=== PATIENT | male | born 1960 | race Caucasian/White ===

== ENCOUNTER 2017-12-05 09:55 | Emergency (ER) | payer OTHER ==
[~2017-12-05] VITALS: Ht 157.5 cm; Wt 79.4 kg
[~2017-12-05 09:55] MED LIST: Aspirin EC81 MG PO; CLON.5 PO; DESONIDE; DOC250 PO; GEMF600 PO; IBUP400 PO; LORA10 PO; LORA1SY PO; Milk Of Ma400 MG/5 M PO; NYST100P TOP; NYSTRITC TOP; Omeprazole20 M1; Omeprazole20 M1 PO; Prozac20 MG
[2017-12-05 11:04] LABS: Source, Urine Clean Catch
[2017-12-05 11:06] LABS: BASOPHILS ABSOLUTE AUTO 0.08 K/mm3 (0.00-0.23); BASOPHILS PERCENT AUTO 2 % (0-2); EOSINOPHILS ABSOLUTE AUTO 0.03 K/mm3 (0.00-0.68); EOSINOPHILS PERCENT AUTO 1 % (0-6); Hematocrit 43.2 % (37.0-53.0); Hemoglobin 14.4 g/dL (13.5-17.5); IMMATURE GRAN ABSOLUTE AUTO 0.01 K/mm3 (0.00-0.10); IMMATURE GRAN PERCENT AUTO 0 % (0-1); LYMPHOCYTES ABSOLUTE AUTO 1.78 K/mm3 (0.84-5.20); LYMPHOCYTES PERCENT AUTO 53 % (21-46); MONOCYTES ABSOLUTE AUTO 0.32 K/mm3 (0.16-1.47); MONOCYTES PERCENT AUTO 9 % (4-13); Mean Corpuscular HGB 31.1 pg (26.0-34.0); Mean Corpuscular HGB Conc 33.3 g/dL (31.5-36.5); Mean Corpuscular Volume 93 fL (80-100); Mean Platelet Volume 11.4 fL (9.1-12.4); NEUTROPHILS ABSOLUTE AUTO 1.17 K/mm3 (1.96-9.15); NEUTROPHILS PERCENT AUTO 35 % (41-73); Platelet Count 171 K/mm3 (150-400); RDW Coefficient Variation 13.3 % (11.7-14.2); RDW Standard Deviation 45.5 fL (35.1-46.3); Red Blood Cell Count 4.63 M/mm3 (4.30-5.90); White Blood Cell Count 3.39 K/mm3 (4.00-11.30)
[2017-12-05 11:11] LABS: Bilirubin, Urine Neg (Neg); Blood, Urine Neg (Neg); Glucose Qualitative, Urine Neg (Neg); Ketones, Urine Neg (Neg); Leukocyte Esterase, Urine Neg (Neg); Nitrite, Urine Neg (Neg); Protein, Urine Neg (Neg); Urobilinogen, Urine NORM (Normal); pH, Urine 6.5 (5.0-8.0)
[2017-12-05 11:15] LABS: Calcium, Ionized (POC) 1.19 mmol/L (1.10-1.46); Chloride (POC) 101 mmol/L (98-108); Creatinine (POC) 0.9 mg/dL (0.8-1.3); Glucose (ISTAT POC) 85 mg/dL (70-99); Hemoglobin (POC) 13.9 g/dL (13.5-17.5); Potassium (POC) 4.2 mmol/L (3.5-5.5); Sodium (POC) 139 mmol/L (135-148); Total CO2 (POC) 25 mmol/L (21-32)
[2017-12-05 11:23] LABS: Appearance, Urine Clear (Clear); Color, Urine Yellow (P-Yellow)
[2017-12-05 11:31] LABS: Alanine Aminotransfer (ALT/SGP 29 U/L (12-78); Albumin, Blood 3.6 g/dL (3.4-5.0); Albumin/Globulin Ratio 0.9 (0.8-1.8); Alk Phos 107 U/L (50-136); Anion Gap 6 mmol/L (6-16); Aspartate Aminotrans (AST/SGOT 41 U/L (12-37); Bilirubin, Total 0.3 mg/dL (0.1-1.0); Blood Urea Nitrogen 14 mg/dL (8-24); Bun/Creatinine Ratio 14.8 (12.0-20.0); CO2, Blood 27 mmol/L (21-32); Calcium, Blood 8.6 mg/dL (8.5-10.1); Chloride, Blood 105 mmol/L (98-108); Creatinine, Blood 0.95 mg/dL (0.60-1.20); Dilantin (Phenytoin), Total 0.5 ug/mL (10.0-20.0); Globulin, Blood 3.9 g/dL (2.2-4.0); Glomerular Filtration Rate >60 (60-); Glucose, Blood 83 mg/dL (70-99); Potassium, Blood 4.4 mmol/L (3.5-5.5); Sodium, Blood 138 mmol/L (136-145); Total Protein, Blood 7.5 g/dL (6.4-8.2); Valproic Acid <3.0 ug/mL (50.0-100.0)
== END 2017-12-05 11:19 | disposition home or self-care (01) ==
LOC: ER 09:55
PROVIDERS: Emergency Medicine
DX: R56.9 Unspecified convulsions (principal); Z79.899 Other long term (current) drug therapy; Z79.82 Long term (current) use of aspirin
CPT/HCPCS: 36415; 80047; 80053; 80164; 80185; 81003; 85014; 85025; 99283

== ENCOUNTER 2018-07-06 06:06 | Day surgery (SDC) | payer OTHER ==
[~2018-07-06] VITALS: Ht 170.2 cm; Wt 73.1 kg
[2018-07-06] MEDS ORDERED: TAMS.4ER PO (06:38)
[2018-07-06] MEDS ORDERED: MIRALAX17 GM (06:39)
[2018-07-06] MEDS ORDERED: QUET25 PO (06:39)
[2018-07-06] MEDS ORDERED: PANT20 (06:40)
--- NOTE | 2018-07-06 08:43 | NUR ---
07/06/18 0843 Andrea Fitzpatrick LATE [id number] PATIENT STATES HE WANTS TO GO HOME NOW. WANTS IV OUT NOW STATES "IT HURTS". IV D/CD PER PATIENTS REQUEST. VSS
== END 2018-07-06 08:40 | disposition home or self-care (01) ==
LOC: ORSCSDS 06:06
PROVIDERS: Otolaryngology
PROC: 099670Z Drainage of Left Middle Ear with Drainage Device, Via Natural or Artificial Opening (ICD-10-PCS; principal; 2018-07-06 07:30)
PROC: 099570Z Drainage of Right Middle Ear with Drainage Device, Via Natural or Artificial Opening (ICD-10-PCS; principal; 2018-07-06 07:30)
DX: H90.0 Conductive hearing loss, bilateral (principal); H74.01 Tympanosclerosis, right ear; Q90.9 Down syndrome, unspecified; R73.9 Hyperglycemia, unspecified; E78.5 Hyperlipidemia, unspecified; Z79.899 Other long term (current) drug therapy; Z79.82 Long term (current) use of aspirin
CPT/HCPCS: J1100; J2250; J2370; J2405; J3010; J7120

== ENCOUNTER 2018-11-28 12:02 | Emergency (ER) | payer OTHER ==
[~2018-11-28] VITALS: Ht 152.4 cm; Wt 59.0 kg
[~2018-11-28 12:02] MED LIST changes: -CLON.5 PO; +GAVILAX17 GM PO; +Klonopin PO; +PANT40 PO; +QUET25 PO; +TAMS.4ER PO
[2018-11-28 13:22] LABS: BASOPHILS ABSOLUTE AUTO 0.05 K/mm3 (0.00-0.23); BASOPHILS PERCENT AUTO 2 % (0-2); EOSINOPHILS ABSOLUTE AUTO 0.01 K/mm3 (0.00-0.68); EOSINOPHILS PERCENT AUTO 0 % (0-6); Hematocrit 42.2 % (37.0-53.0); Hemoglobin 14.1 g/dL (13.5-17.5); IMMATURE GRAN ABSOLUTE AUTO 0.02 K/mm3 (0.00-0.10); IMMATURE GRAN PERCENT AUTO 1 % (0-1); LYMPHOCYTES ABSOLUTE AUTO 1.74 K/mm3 (0.84-5.20); LYMPHOCYTES PERCENT AUTO 56 % (21-46); MONOCYTES ABSOLUTE AUTO 0.31 K/mm3 (0.16-1.47); MONOCYTES PERCENT AUTO 10 % (4-13); Mean Corpuscular HGB 31.9 pg (26.0-34.0); Mean Corpuscular HGB Conc 33.4 g/dL (31.5-36.5); Mean Corpuscular Volume 96 fL (80-100); Mean Platelet Volume 11.5 fL (9.1-12.4); NEUTROPHILS ABSOLUTE AUTO 0.99 K/mm3 (1.96-9.15); NEUTROPHILS PERCENT AUTO 32 % (41-73); Platelet Count 138 K/mm3 (150-400); RDW Coefficient Variation 13.4 % (11.7-14.2); RDW Standard Deviation 47.4 fL (35.1-46.3); Red Blood Cell Count 4.42 M/mm3 (4.30-5.90); White Blood Cell Count 3.12 K/mm3 (4.00-11.30)
[2018-11-28 13:40] LABS: Alanine Aminotransfer (ALT/SGP 56 U/L (12-78); Albumin, Blood 3.3 g/dL (3.4-5.0); Alk Phos 78 U/L (50-136); Anion Gap 10 mmol/L (6-16); Aspartate Aminotrans (AST/SGOT 41 U/L (12-37); Bilirubin, Total 0.4 mg/dL (0.1-1.0); Blood Urea Nitrogen 13 mg/dL (8-24); Bun/Creatinine Ratio 13.3 (12.0-20.0); CO2, Blood 24 mmol/L (21-32); Calcium, Blood 8.2 mg/dL (8.5-10.1); Chloride, Blood 108 mmol/L (98-108); Creatinine, Blood 0.98 mg/dL (0.60-1.20); Globulin, Blood 3.2 g/dL (2.2-4.0); Glomerular Filtration Rate >60 (60-); Glucose, Blood 100 mg/dL (70-99); Potassium, Blood 4.3 mmol/L (3.5-5.5); Sodium, Blood 142 mmol/L (136-145); Total Protein, Blood 6.5 g/dL (6.4-8.2)
== END 2018-11-28 14:38 | disposition home or self-care (01) ==
LOC: ER 12:02
PROVIDERS: Emergency Medicine
DX: R56.9 Unspecified convulsions (principal); S00.12XA Contusion of left eyelid and periocular area, initial encounter; Q90.9 Down syndrome, unspecified; F03.90 Unspecified dementia, unspecified severity, without behavioral disturbance, psychotic disturbance, mood disturbance, and anxiety; Z79.899 Other long term (current) drug therapy
CPT/HCPCS: 36415; 80053; 85025; 96374; 99284-25; J2060

== ENCOUNTER 2019-06-24 09:49 | Emergency (ER) | payer OTHER ==
[~2019-06-24] VITALS: Ht 172.7 cm; Wt 68.0 kg
== END 2019-06-24 13:03 | disposition home or self-care (01) ==
LOC: ER 09:49
DX: R56.9 Unspecified convulsions (principal); Q90.9 Down syndrome, unspecified; F03.90 Unspecified dementia, unspecified severity, without behavioral disturbance, psychotic disturbance, mood disturbance, and anxiety; Z79.899 Other long term (current) drug therapy
CPT/HCPCS: 71046; 93005; 93010; 99284-25

== ENCOUNTER → 2019-07-25 | Outpatient (CLI) | payer OTHER ==
[2019-07-26 14:23] LABS: Stool Occult Bld Immuno 1 Negative (NEGATIVE)
== END | disposition home or self-care (01) ==
LOC: LAB 19:34 → LAB SHORT 19:34
PROVIDERS: Family Medicine
DX: Z12.11 Encounter for screening for malignant neoplasm of colon (principal)
CPT/HCPCS: G0328

== ENCOUNTER → 2019-12-25 | Outpatient (CLI) | payer OTHER ==
[~2019-12-25] MED LIST changes: +Ativan1 MG SL; +CLON.5 PO; +DIVA500EC PO; +HYDR1TAB94 PO; +LEVSOD25 PO; +Loratadine10 MG PO; +Prozac20 MG PO
[2019-12-25 15:45] LABS: Source, Urine Clean Catch
[2019-12-25 18:37] LABS: Bilirubin, Urine Neg (Neg); Blood, Urine Neg (Neg); Glucose Qualitative, Urine Neg (Neg); Ketones, Urine Neg (Neg); Leukocyte Esterase, Urine Neg (Neg); Nitrite, Urine Neg (Neg); Protein, Urine Neg (Neg); Urobilinogen, Urine NORM (Normal); pH, Urine 6.5 (5.0-8.0)
[2019-12-25 19:01] LABS: Appearance, Urine Clear (Clear); Color, Urine Yellow (P-Yellow)
== END | disposition home or self-care (01) ==
LOC: LAB SHORT 15:44 → LAB 15:44
PROVIDERS: Family Medicine
DX: R53.83 Other fatigue (principal); R53.81 Other malaise; R60.0 Localized edema
CPT/HCPCS: 81003

== ENCOUNTER 2020-03-04 00:34 | Day surgery (SDC) | payer OTHER ==
[2020-03-05] MEDS ORDERED: DULCOLAX400 MG/5 M PO ×2 (11:19→11:23)
[2020-03-05] MEDS ORDERED: OMEP20ER PO (11:19)
[2020-03-05] MEDS ORDERED: TUMS500 MG PO (11:20)
[2020-03-05] MEDS ORDERED: IBUP200 PO (11:20)
[2020-03-05] MEDS ORDERED: LOPE2C PO (11:20)
[2020-03-05] MEDS ORDERED: ACET325 PO (11:21)
[2020-03-05] MEDS ORDERED: CLON.5 PO (11:22)
[2020-03-05] MEDS ORDERED: ROBITUSSIN PO (11:22)
[2020-03-05] MEDS ORDERED: METAMUCIL POWD575 GM PO (11:24)
== END 2020-03-04 22:39 | disposition home or self-care (01) ==
LOC: WOUND 00:34
DX: I96 Gangrene, not elsewhere classified (principal); L89.310 Pressure ulcer of right buttock, unstageable; L40.9 Psoriasis, unspecified; L82.1 Other seborrheic keratosis; R56.9 Unspecified convulsions; Q90.9 Down syndrome, unspecified; F03.90 Unspecified dementia, unspecified severity, without behavioral disturbance, psychotic disturbance, mood disturbance, and anxiety; Z20.828 Contact with and (suspected) exposure to other viral communicable diseases; Z79.899 Other long term (current) drug therapy
CPT/HCPCS: G0463; U0003

== ENCOUNTER 2020-03-06 07:03 | Day surgery (SDC) | payer OTHER ==
[~2020-03-06] VITALS: Ht 172.7 cm; Wt 76.2 kg
[~2020-03-06 07:03] MED LIST changes: +ACET325 PO; +DULCOLAX400 MG/5 M PO; +IBUP200 PO; +LOPE2C PO; +METAMUCIL POWD575 GM PO; +OMEP20ER PO; +ROBITUSSIN PO; +TUMS500 MG PO
--- NOTE | 2020-03-06 08:09 | NUR ---
PATIENT ARRIVED FOR HIS PROCEDURE WITH HIS CARE-GIVERS, THE PATIENT IS MENTALLY SLOW AND HAS HIS SISTER POA, MUNIR SANDOVAL WILL CALL THE PATIENT'S SISTER WHEN THE ANESTHIST ARRIVES. History, Chart, Medications and Allergies reviewed before start of procedure.Lungs clear T/O to Auscultation. Patient confirms NPO status and agrees with scheduled surgery. Patient States Post-Procedure ride home has been arranged.
[2020-03-06 08:50] LABS: Anion Gap 5 mmol/L (6-16); Blood Urea Nitrogen 13 mg/dL (8-24); Bun/Creatinine Ratio 17.7 (12.0-20.0); CO2, Blood 28 mmol/L (21-32); Calcium, Blood 7.6 mg/dL (8.5-10.1); Chloride, Blood 98 mmol/L (98-108); Creatinine, Blood 0.74 mg/dL (0.60-1.20); Glomerular Filtration Rate >60 (60-); Glucose, Blood 70 mg/dL (70-99); Potassium, Blood 4.3 mmol/L (3.5-5.5); Sodium, Blood 131 mmol/L (136-145)
--- NOTE | 2020-03-06 10:29 | NUR ---
THE PATIENT WAS RECEIVED INTO D/S AND HIS CARE-GIVERS WERE IN THE ROOM. DISCHARGE INSTRUCTIONS WERE GIVEN TO THE PATIENTS CARE-GIVERS. / Discharge instructions reviewed with patient. Patient verbalizes understanding. Copy given to patient to take home. Patient States Post-Procedure ride home has been arranged. Discharged via wheelchair to private car for ride home.
[2020-03-06 10:49] LABS: Free Thyroxine 1.2 ng/dL (0.70-1.60); Thyroid Stimulating Hormone 3.33 uIU/mL (0.360-4.800); Triiodothyronine, Free 1.96 pg/mL (2.18-3.98)
== END 2020-03-06 11:05 | disposition home or self-care (01) ==
LOC: ORSCMMR 07:03 → ORD 08:30 → ORSCMMR 08:30
PROVIDERS: Family Medicine; Surgery
PROC: 0H98XZZ Drainage of Buttock Skin, External Approach (ICD-10-PCS; principal; 2020-03-06 08:30)
DX: L02.31 Cutaneous abscess of buttock (principal); A49.02 Methicillin resistant Staphylococcus aureus infection, unspecified site; K21.9 Gastro-esophageal reflux disease without esophagitis; G30.9 Alzheimer's disease, unspecified; F02.80 Dementia in other diseases classified elsewhere, unspecified severity, without behavioral disturbance, psychotic disturbance, mood disturbance, and anxiety; Z79.899 Other long term (current) drug therapy
CPT/HCPCS: 80048; 84439; 84443; 84481; 87071; 87075; 87076; 87077; 87147; 87185; 87186; 87205; J0690; J1100; J1885; J2405; J2704; J3010; J7120

== ENCOUNTER 2020-03-11 09:41 | Day surgery (SDC) | payer OTHER | END 2020-03-11 12:00 | disposition home or self-care (01) | LOC: WOUND 09:41 | DX: L02.31 Cutaneous abscess of buttock (principal); I96 Gangrene, not elsewhere classified; Q90.9 Down syndrome, unspecified; F03.90 Unspecified dementia, unspecified severity, without behavioral disturbance, psychotic disturbance, mood disturbance, and anxiety; Z79.899 Other long term (current) drug therapy | CPT/HCPCS: G0463 ==

== ENCOUNTER 2020-03-18 00:50 | Day surgery (SDC) | payer OTHER | END 2020-03-18 23:44 | disposition home or self-care (01) | LOC: WOUND 00:50 | DX: L02.31 Cutaneous abscess of buttock (principal); I96 Gangrene, not elsewhere classified; F02.81 Dementia in other diseases classified elsewhere, unspecified severity, with behavioral disturbance; Q90.9 Down syndrome, unspecified; Z79.899 Other long term (current) drug therapy ==

== ENCOUNTER → 2020-03-19 | Outpatient (CLI) | payer OTHER | END | disposition home or self-care (01) | LOC: LAB 16:42 → LAB SHORT 16:42 | DX: L08.0 Pyoderma (principal) | CPT/HCPCS: 87070; 87205 ==

== ENCOUNTER 2020-03-25 00:31 | Day surgery (SDC) | payer OTHER | END 2020-03-25 23:15 | disposition home or self-care (01) | LOC: WOUND 00:31 | DX: L02.31 Cutaneous abscess of buttock (principal); Q90.9 Down syndrome, unspecified; F02.81 Dementia in other diseases classified elsewhere, unspecified severity, with behavioral disturbance | CPT/HCPCS: G0463 ==

== ENCOUNTER 2020-04-01 01:11 | Day surgery (SDC) | payer OTHER | END 2020-04-01 23:07 | disposition home or self-care (01) | LOC: WOUND 01:11 | DX: L02.31 Cutaneous abscess of buttock (principal); I96 Gangrene, not elsewhere classified; Q90.9 Down syndrome, unspecified; F02.81 Dementia in other diseases classified elsewhere, unspecified severity, with behavioral disturbance; Z79.899 Other long term (current) drug therapy | CPT/HCPCS: G0463 ==

== ENCOUNTER 2020-04-15 01:25 | Day surgery (SDC) | payer OTHER | END 2020-04-15 22:44 | disposition home or self-care (01) | LOC: WOUND 01:25 | DX: L02.31 Cutaneous abscess of buttock (principal); Q90.9 Down syndrome, unspecified; F02.81 Dementia in other diseases classified elsewhere, unspecified severity, with behavioral disturbance; Z79.899 Other long term (current) drug therapy | CPT/HCPCS: G0463 ==

== ENCOUNTER 2020-04-26 01:08 | Day surgery (SDC) | payer OTHER | END 2020-04-26 23:13 | disposition home or self-care (01) | LOC: WOUND 01:08 | DX: L02.31 Cutaneous abscess of buttock (principal); Q90.9 Down syndrome, unspecified; F02.81 Dementia in other diseases classified elsewhere, unspecified severity, with behavioral disturbance | CPT/HCPCS: G0463 ==

== ENCOUNTER 2020-05-06 00:22 | Day surgery (SDC) | payer OTHER | END 2020-05-06 23:42 | disposition home or self-care (01) | LOC: WOUND 00:22 | DX: L02.31 Cutaneous abscess of buttock (principal); Q90.9 Down syndrome, unspecified; F02.81 Dementia in other diseases classified elsewhere, unspecified severity, with behavioral disturbance | CPT/HCPCS: G0463 ==

== ENCOUNTER 2020-05-14 05:13 | Emergency (ER) | payer OTHER ==
[~2020-05-14] VITALS: Ht 165.1 cm; Wt 81.7 kg
[2020-05-14 05:45] LABS: Calcium, Ionized (POC) 1.15 mmol/L (1.10-1.46); Chloride (POC) 102 mmol/L (98-108); Creatinine (POC) 0.8 mg/dL (0.8-1.3); Glucose (ISTAT POC) 69 mg/dL (70-99); Hemoglobin (POC) 13.9 g/dL (13.5-17.5); Potassium (POC) 4.1 mmol/L (3.5-5.5); Sodium (POC) 138 mmol/L (135-148); Total CO2 (POC) 27 mmol/L (21-32)
== END 2020-05-14 06:50 | disposition home or self-care (01) ==
LOC: ER 05:13
PROVIDERS: Emergency Medicine
DX: R56.9 Unspecified convulsions (principal); Z79.899 Other long term (current) drug therapy
CPT/HCPCS: 80047; 85014; 99284

== ENCOUNTER 2020-05-20 00:43 | Day surgery (SDC) | payer OTHER | END 2020-05-20 22:50 | disposition home or self-care (01) | LOC: WOUND 00:43 | DX: L02.31 Cutaneous abscess of buttock (principal); L98.412 Non-pressure chronic ulcer of buttock with fat layer exposed; Q90.9 Down syndrome, unspecified; F02.81 Dementia in other diseases classified elsewhere, unspecified severity, with behavioral disturbance | CPT/HCPCS: G0463 ==

== ENCOUNTER → 2020-05-29 | Outpatient (CLI) | payer OTHER ==
[~2020-05-29] MED LIST changes: +BENADRYL25 MG PO; +Citroma296 ML PO; +Clobetasol Prop50 ML TOP; +Clonazepam0.25 MG SL; +DEPAKOTE ER500 M1 PO; -DIVA500EC PO; -GAVILAX17 GM PO; +HYDROCODONE-AC1 EA10 PO; -IBUP200 PO; -Klonopin PO; +MIRALAX17 GM PO; +MONT10T PO; +Monodox100 MG PO; +NYSTOP15 GM TOP; -NYSTRITC TOP; -OMEP20ER PO; +PROBIOTIC1 EA13 PO; -Prozac20 MG; -QUET25 PO; +SYNTHROID25 MC3 PO; +Seroquel Xr50 MG PO; +TRIPLE ABX TOP; +calmoseptine oint TOP
== END | disposition home or self-care (01) ==
LOC: LAB HH 12:26 → LAB SHORT 12:26
DX: L02.31 Cutaneous abscess of buttock (principal); B95.62 Methicillin resistant Staphylococcus aureus infection as the cause of diseases classified elsewhere
CPT/HCPCS: 87070; 87081; 87147; 87205

== ENCOUNTER 2020-06-13 00:28 | Day surgery (SDC) | payer OTHER ==
[~2020-06-13 00:28] MED LIST changes: -ACET325 PO; -BENADRYL25 MG PO; -Citroma296 ML PO; -Clobetasol Prop50 ML TOP; -Clonazepam0.25 MG SL; -DEPAKOTE ER500 M1 PO; -DULCOLAX400 MG/5 M PO; -HYDROCODONE-AC1 EA10 PO; -LOPE2C PO; -Loratadine10 MG PO; -METAMUCIL POWD575 GM PO; -MIRALAX17 GM PO; -MONT10T PO; -Monodox100 MG PO; -NYSTOP15 GM TOP; -PANT40 PO; -PROBIOTIC1 EA13 PO; -ROBITUSSIN PO; -SYNTHROID25 MC3 PO; -Seroquel Xr50 MG PO; -TAMS.4ER PO; -TRIPLE ABX TOP; -TUMS500 MG PO; -calmoseptine oint TOP
== END 2020-06-13 23:30 | disposition home or self-care (01) ==
LOC: WOUND 00:28
DX: L02.31 Cutaneous abscess of buttock (principal); Q90.9 Down syndrome, unspecified; F03.91 Unspecified dementia, unspecified severity, with behavioral disturbance
CPT/HCPCS: A9270; G0463

== ENCOUNTER 2020-06-16 19:05 | Inpatient (IN) | payer OTHER ==
[~2020-06-16] VITALS: Ht 165.1 cm; Wt 88.7 kg
[2020-06-16 19:37] LABS: BASOPHILS ABSOLUTE AUTO 0.09 K/mm3 (0.00-0.23); BASOPHILS PERCENT AUTO 1 % (0-2); EOSINOPHILS PERCENT AUTO 0 % (0-6); Hematocrit 36.9 % (37.0-53.0); Hemoglobin 12.1 g/dL (13.5-17.5); IMMATURE GRAN ABSOLUTE AUTO 0.23 K/mm3 (0.00-0.10); IMMATURE GRAN PERCENT AUTO 1 % (0-1); LYMPHOCYTES ABSOLUTE AUTO 1.85 K/mm3 (0.84-5.20); LYMPHOCYTES PERCENT AUTO 10 % (21-46); MONOCYTES ABSOLUTE AUTO 1.64 K/mm3 (0.16-1.47); MONOCYTES PERCENT AUTO 9 % (4-13); Mean Corpuscular HGB 33.5 pg (26.0-34.0); Mean Corpuscular HGB Conc 32.8 g/dL (31.5-36.5); Mean Corpuscular Volume 102 fL (80-100); Mean Platelet Volume 11.7 fL (9.1-12.4); NEUTROPHILS ABSOLUTE AUTO 14.74 K/mm3 (1.96-9.15); NEUTROPHILS PERCENT AUTO 80 % (41-73); Platelet Count 116 K/mm3 (150-400); RDW Standard Deviation 60.9 fL (35.1-46.3); Red Blood Cell Count 3.61 M/mm3 (4.30-5.90); White Blood Cell Count 18.55 K/mm3 (4.00-11.30)
[2020-06-16] MEDS ORDERED: DEPAKOTE ER500 M1 PO (19:43)
[2020-06-16] MEDS ORDERED: Prozac20 MG PO (19:44)
[2020-06-16] MEDS ORDERED: Monodox100 MG PO (19:44)
[2020-06-16] MEDS ORDERED: SYNTHROID25 MC3 PO (19:45)
[2020-06-16] MEDS ORDERED: Loratadine10 MG PO (19:46)
[2020-06-16] MEDS ORDERED: Seroquel Xr50 MG PO (19:47)
[2020-06-16] MEDS ORDERED: MONT10T PO (19:47)
[2020-06-16] MEDS ORDERED: TAMS.4ER PO (19:48)
[2020-06-16] MEDS ORDERED: PANT40 PO (19:48)
[2020-06-16] MEDS ORDERED: Clonazepam0.25 MG SL (19:50)
[2020-06-16 20:05] LABS: Alanine Aminotransfer (ALT/SGP 35 U/L (12-78); Albumin, Blood 1.7 g/dL (3.4-5.0); Albumin/Globulin Ratio 0.5 (0.8-1.8); Alk Phos 101 U/L (50-136); Anion Gap 8 mmol/L (6-16); Aspartate Aminotrans (AST/SGOT 50 U/L (12-37); Bilirubin, Total 0.5 mg/dL (0.1-1.0); Blood Urea Nitrogen 30 mg/dL (8-24); Bun/Creatinine Ratio 27.5 (12.0-20.0); CO2, Blood 25 mmol/L (21-32); Calcium, Blood 8.1 mg/dL (8.5-10.1); Chloride, Blood 105 mmol/L (98-108); Creatinine, Blood 1.09 mg/dL (0.60-1.20); Globulin, Blood 3.7 g/dL (2.2-4.0); Glomerular Filtration Rate >60 (60-); Glucose, Blood 71 mg/dL (70-99); Potassium, Blood 4.2 mmol/L (3.5-5.5); Sodium, Blood 138 mmol/L (136-145); Total Protein, Blood 5.4 g/dL (6.4-8.2)
[2020-06-16] MEDS ORDERED: TUMS500 MG PO (20:26)
[2020-06-16] MEDS ORDERED: MIRALAX17 GM PO (20:35)
[2020-06-16] MEDS ORDERED: ACET325 PO (20:35)
[2020-06-16] MEDS ORDERED: DULCOLAX400 MG/5 M PO (20:36)
[2020-06-16] MEDS ORDERED: LOPE2C PO (20:38)
[2020-06-16] MEDS ORDERED: IBUP400 PO (20:39)
[2020-06-16] MEDS ORDERED: METAMUCIL POWD575 GM PO (20:40)
[2020-06-16] MEDS ORDERED: HYDROCODONE-AC1 EA10 PO (20:41)
[2020-06-16] MEDS ORDERED: PROBIOTIC1 EA13 PO (20:42)
[2020-06-16] MEDS ORDERED: BENADRYL25 MG PO (20:44)
[2020-06-16] MEDS ORDERED: CLON.5 PO (20:44)
[2020-06-16] MEDS ORDERED: Clobetasol Prop50 ML TOP (20:46)
[2020-06-16] MEDS ORDERED: calmoseptine oint TOP (20:47)
[2020-06-16] MEDS ORDERED: NYSTOP15 GM TOP (20:48)
[2020-06-16 20:50] LABS: Source, Urine Clean Catch
[2020-06-16] MEDS ORDERED: Citroma296 ML PO (20:50)
[2020-06-16] MEDS ORDERED: ROBITUSSIN PO (20:52)
[2020-06-16] MEDS ORDERED: TRIPLE ABX TOP (20:53)
[2020-06-16 20:54] LABS: Blood, Urine Neg (Neg); Glucose Qualitative, Urine Neg (Neg); Ketones, Urine 2+ (Neg); Leukocyte Esterase, Urine 1+ (Neg); Nitrite, Urine Neg (Neg); Protein, Urine 2+ (Neg); Urobilinogen, Urine 1+ (Normal)
[2020-06-16 20:57] LABS: Appearance, Urine Clear (Clear); Bilirubin, Urine 1+ (Neg); Color, Urine Amber (P-Yellow)
[2020-06-16 21:01] LABS: Red Blood Cells, Urine 0-2 /hpf (0-2); White Blood Cells, Urine 0-2 /hpf (0-5)
[2020-06-16 21:03] LABS: Bacteria Not Seen /hpf; Mucus Mod (0-Heavy); Squamous Epithelial Cells Few /hpf (Few)
[2020-06-16 21:20] LABS: Influenza A, PCR Negative (NEGATIVE); Influenza B, PCR Negative (NEGATIVE); Resp Syncytial Virus, PCR Negative (NEGATIVE); SARS-Cov-2 (COVID-19) PCR, MMC Negative (NEGATIVE)
--- NOTE | 2020-06-17 00:20 | NUR ---
PATIENT ARRIVED TO ICU 6 VIA GURNEY PATIENT AWAKE BUT NOT COOPERATIVE. PATIENTS SISTER CHELE AND CAREGIVER AT BEDSIDE TO ASSIST WITH ADMIT AND TO PROVIDE EMOTIONAL SUPPORT TO PATIENT. PATIENT HAS HX OF DOWNS SYNDROME AND DEMENTIA. PATIENT INCONT OF SMALL LOOSE BROWN BM. BAND-AID TO RIGHT BUTTOCK REMOVED, WOUND CLEANSED, PICTURES TAKEN AND FOAM DRESSING PLACED. LARGE BRUISE SEEN TO RIGHT INNER THIGH AND DAVE AREA RED. PATIENT PLACED ON ICU MONITORS. HYPOTENSION CONTINUES AND TEMP OF 102.[address] TEMP PROBE. ALBUMIN AND IV FLUIDS STARTED FOR HYPOTENSION AND TYLENOL SUPPOS GIVEN FOR FEVER. ADMIT HISTORY COMPLETED WITH ASSISTANCE FROM PATIENTS SISTER.
--- NOTE | 2020-06-17 02:53 | NUR ---
DOCTOR ALISSON NOTIFIED OF CONTINUED HYPOTENSION AFTER ALBUMIN INFUSION, ORDER OBTAINED FOR NS 500CC BOLUS AND LOW DOSE LEVOPHED VIA PERIPHERAL IV. PATIENTS SISTER CHELE IN ROOM VERBALIZED CONCERN REGARDING CENTRAL LINE AND PATIENTS ABILITY TO UNDERSTAND NOT TO PULL AT LINE.
[2020-06-17 03:56] LABS: Hematocrit 32.4 % (37.0-53.0); Hemoglobin 10.6 g/dL (13.5-17.5); Mean Corpuscular HGB 33.2 pg (26.0-34.0); Mean Corpuscular HGB Conc 32.7 g/dL (31.5-36.5); Mean Corpuscular Volume 102 fL (80-100); Mean Platelet Volume 11.4 fL (9.1-12.4); Platelet Count 105 K/mm3 (150-400); RDW Coefficient Variation 16.2 % (11.7-14.2); RDW Standard Deviation 61.4 fL (35.1-46.3); Red Blood Cell Count 3.19 M/mm3 (4.30-5.90); White Blood Cell Count 14.05 K/mm3 (4.00-11.30)
[2020-06-17 04:28] LABS: Alanine Aminotransfer (ALT/SGP 42 U/L (12-78); Albumin, Blood 1.8 g/dL (3.4-5.0); Albumin/Globulin Ratio 0.6 (0.8-1.8); Alk Phos 89 U/L (50-136); Anion Gap 9 mmol/L (6-16); Aspartate Aminotrans (AST/SGOT 42 U/L (12-37); Bilirubin, Total 0.6 mg/dL (0.1-1.0); Blood Urea Nitrogen 31 mg/dL (8-24); CO2, Blood 23 mmol/L (21-32); Calcium, Blood 7.6 mg/dL (8.5-10.1); Chloride, Blood 111 mmol/L (98-108); Creatinine, Blood 1.15 mg/dL (0.60-1.20); Globulin, Blood 2.9 g/dL (2.2-4.0); Glomerular Filtration Rate >60 (60-); Glucose, Blood 51 mg/dL (70-99); Potassium, Blood 3.7 mmol/L (3.5-5.5); Sodium, Blood 143 mmol/L (136-145); Total Protein, Blood 4.7 g/dL (6.4-8.2)
[2020-06-17 04:31] LABS: BAND PERCENT MAN 34 % (0-8); BASOPHILS PERCENT MAN 0 % (0-2); EOSINOPHILS PERCENT MAN 0 % (0-6); LYMPHOCYTES ABSOLUTE MAN 0.42 K/mm3 (0.84-5.20); LYMPHOCYTES PERCENT MAN 3 % (21-46); METAMYELOCYTE ABSOLUTE MAN 0.14 K/mm3 (0.00-0.00); METAMYELOCYTE PERCENT MAN 1 % (0-0); MONOCYTES ABSOLUTE MAN 0.28 K/mm3 (0.16-1.47); MONOCYTES PERCENT MAN 2 % (4-13); MYELOCYTE ABSOLUTE MAN 0.14 K/mm3 (0.00-0.00); MYELOCYTE PERCENT MAN 1 % (0-0); NEUTROPHILS ABSOLUTE MAN 13.06 K/mm3 (1.96-9.15); SEG NEUTROPHILS PERCENT MAN 59 % (41-73); TOTAL CELLS COUNTED 100
--- NOTE | 2020-06-17 06:26 | NUR ---
SUMMARY PATIENT SLEEPING, AWAKENS TO SLIGHT STIMULI. ANXIOUS AND JERKING MOVEMENTS IN EXTREMITIES WHEN AWAKE. HX DOWNS SYNDROME AND DEMENTIA. LEVOPHED 7 MCG/MIN INFUSING FOR HYPOTENSION. SLOW BOLUS INFUSING (500 CC AT 200CC/HR) PER DOCTOR VINSON. TYLENOL GIVEN ONCE FOR FEVER, WITH GOOD RESULTS. PATIENTS SISTER AND [id number] AT BEDSIDE TO HELP PATIENT REMAIN CALM. LANE WITH SMALL AMT OF DARK GT URINE.
--- NOTE | 2020-06-17 08:00 | NUR ---
ASSUMED CARE: REPORT RECEIVED FROM KHOI Villaseñor RN. ASSUMED CARE OF THIS PT AT APPROX 0700. ON ASSESSMENT, THE PT IS RESTING SOUNDLY. HE IS SNORING LIGHTLY & GRIMACES/ WITHDRAWS FROM PAINFUL STIMULI. HX OF ALZHEIMER's DEMENTIA, DOWNS SYNDROME & DEVELOPMENTAL DELAYS AT BASELINE. PT's SISTER IS AT BEDSIDE & STS THE PT IS VERY EASILY AGITATED WHEN ALERT & WOULD NOT GENERALLY TOLERATE THE OXYGEN CANNULA OR TELE LEADS BEING ON HIM. LS ARE COARSE ON R SIDE, DIM IN BASES. PT ON 5L NC W/ O2 SATS > 92%. MONITOR SHOWS SR W/ OCC PVCs, HR 90s. LEVOPHED INFUSING FOR BP MANAGEMENT, PT W/ PERSISTANT HYPOTENSION, LEVOPHED TITRATION NOTED IN FLOWSHEET. PT NPO R/T SOMNOLENCE AT THIS TIME, HE HAS HAD LOOSE INCONTINENT STLS DURING THE NIGHT, PER REPORT. LANE PATENT/ DRAINING DARK YELLOW URINE. SKIN CONDITION OVERALL INTACT. SCATTERED BRUISING T/O W/ LARGE AREA OF ECCHYMOSIS NOTED TO R INNER THIGH. HEALING PRESSURE ULCER PRESENT TO R BUTTOCKS/ COCCYX. PT's SISTER, CHELE, IS AT BEDSIDE & IS SUPPORTIVE IN CARE. WILL CONTINUE TO MONITOR & UPDATE NEEDED.
--- NOTE | 2020-06-17 09:55 | NUR ---
UPDATE: THIS RN TO BEDSIDE FOR PT's O2 SATS DROPPING QUICKLY FROM 94% TO A LOW OF 66%. NC PLACED IN PT's MOUTH & INCREASED FROM 5 L/MIN TO 15 L/MIN. EAN Clark RT, CALLED TO BEDSIDE W/ HI-FLOW NC. PT's O2 SATS INCREASED TO 88-92% BUT CONTINUES TO DECREASE AT TIMES TO 80%. PT HAS NOT BEEN APNEIC DURING THIS EVENT BUT DOES HAVE A HX OF BASIL. PT's SISTER STS THAT HE HAS NEVER BEEN ABLE TO TOLERATE A CPAP OR BIPAP. PT HAS A MOIST PRODUCTIVE COUGH. NT SUCTION HAS BEEN DISCUSSED W/ HIS SISTER & SHE STS THAT SHE FEELS THIS WOULD BE TOO INVASIVE FOR THE PT & WOULD ONLY AGITATE HIM. PT O2 SATS NOW INCREASED TO 89% OR GREATER.
--- NOTE | 2020-06-17 10:45 | NUR ---
DR REYES: PROVIDER AT BEDSIDE TO EVAL PT. IT HAS BEEN DISCUSSED THAT ALL "LESS-INVASIVE" MEASURES ARE BEING TAKEN TO SUPPORT THE PT AT THIS TIME. THE FAMILY IS UNDERSTANDING OF THIS & AGAIN VERABLIZE THAT THEY DO NOT WANT THE PT TO RECEIVE MORE INVASIVE MEASURES OF CARE SUCH NT SUCTION, BIPAP THERAPY OR CENTRAL LINE PLACEMENT. NO NEW ORDERS AT THIS TIME.
--- NOTE | 2020-06-17 16:18 | NUR ---
Spiritual care note: Pt and family are devout Catholics. Father Denver was requested for Sacrement of the Sick. Sister and care-fixed income manager at bedside. Both tearful. loving, and approriate. Family waiting to see what Fitz does. They verbalize understanding that he may be nearing end of life. I will remain available.
--- NOTE | 2020-06-17 19:30 | NUR ---
PATIENT SLEEPING WITH FAMILY AT BEDSIDE PROVIDING GOOD SUPPORT. AWAKENS TO SLIGHT STIMULI, FALLING BACK TO SLEEP EASILY. LEVOPHED DRIP CONTINUES AT 8 MCG FOR HYPOTENSION, VIA PERIPHERAL IV, MOIST COUGH CONTINUES, PATIENT SWALLOWING SPUTUM ON 10L/NC.
--- NOTE | 2020-06-17 19:37 | NUR ---
SHIFT SUMMARY: NO ACUTE CHANGES SINCE PRIOR UPDATES. PT IN GENERAL REMAINS SOMNOLENT, WAKING OCCASIONALLY W/ EYES OPEN. HE IS AGITATED DURING THESE TIMES & UNABLE TO FOLLOW DIRECTIONS. LS ARE COARSE ON R SIDE, DIM IN BASES. PT ON 10 L HI-FLOW NC W/ O2 SATS > 92%. MONITOR SHOWS SR W/ OCCASIONAL PVCs, HR 80-90s, LEVOPHED INFUSING FOR BP MANAGEMENT. PT NPO R/T SOMNOLENCE & ASPIRATION RISK, SOFT BROWN BM x1 THIS SHIFT. LANE PATENT/ DRAINING DARK YELLOW URINE. SKIN CONDITION OVERALL CDI, Q2H REPOSITIONING TO MAINTAIN SKIN INTEGRITY. REPORT GIVEN TO KHOI Villaseñor RN TO ASSUME CARE.
--- NOTE | 2020-06-17 23:06 | NUR ---
PATIENT REMOVED OXYGEN, BIOX 95% ON RA AT THIS TIME. PATIENT MORE AWAKE SAYING RANDOM WORDS, DIFFICULT TO UNDERSTAND. IV'S AND LINES REMAIN COVERED TO HELP PROTECT FROM BEING PULLED ON. [id number] REMAINS AT BEDSIDE TO HELP PATIENT REMAIN CALM
[2020-06-18 03:54] LABS: Hemoglobin 12.1 g/dL (13.5-17.5); Mean Corpuscular HGB 33.3 pg (26.0-34.0); Mean Corpuscular HGB Conc 32.7 g/dL (31.5-36.5); Mean Corpuscular Volume 102 fL (80-100); Mean Platelet Volume 10.6 fL (9.1-12.4); Platelet Count 132 K/mm3 (150-400); RDW Coefficient Variation 16.3 % (11.7-14.2); RDW Standard Deviation 61.7 fL (35.1-46.3); Red Blood Cell Count 3.63 M/mm3 (4.30-5.90); White Blood Cell Count 17.36 K/mm3 (4.00-11.30)
[2020-06-18 04:13] LABS: Alanine Aminotransfer (ALT/SGP 42 U/L (12-78); Albumin, Blood 1.4 g/dL (3.4-5.0); Albumin/Globulin Ratio 0.5 (0.8-1.8); Alk Phos 94 U/L (50-136); Anion Gap 6 mmol/L (6-16); Aspartate Aminotrans (AST/SGOT 47 U/L (12-37); Bilirubin, Total 0.5 mg/dL (0.1-1.0); Blood Urea Nitrogen 28 mg/dL (8-24); Bun/Creatinine Ratio 25.9 (12.0-20.0); CO2, Blood 24 mmol/L (21-32); Calcium, Blood 7.4 mg/dL (8.5-10.1); Chloride, Blood 114 mmol/L (98-108); Creatinine, Blood 1.08 mg/dL (0.60-1.20); Globulin, Blood 2.8 g/dL (2.2-4.0); Glomerular Filtration Rate >60 (60-); Glucose, Blood 81 mg/dL (70-99); Potassium, Blood 3.7 mmol/L (3.5-5.5); Sodium, Blood 144 mmol/L (136-145); Total Protein, Blood 4.2 g/dL (6.4-8.2)
--- NOTE | 2020-06-18 07:33 | NUR ---
SUMMARY PATIENT MORE AWAKE TONIGHT, YELLING OUT AT TIMES, DIFFICULT TO UNDERSTAND AT TIMES, CAM PATIENTS [id number] AT BED SIDE PROVIDING GOOD SUPPORT. LEVOPHED TITRATED DOWN TO 5MCG. MOIST COUGH CONTINUES PATIENT SWALLOWING SPUTUM. OXYGEN REMAINS OFF WITH BIOX 90-95% ON RA.
--- NOTE | 2020-06-18 07:45 | NUR ---
ASSUMED CARE: REPORT RECEIVED FROM KHOI Villaseñor RN. ASSUMED CARE OF THIS PT AT APPROX 0700. ON ASSESSMENT, THE PT IS RESTING QUIETLY. HE AWAKENS EASILY TO VERBAL STIMULUS & IS LOOKING AROUND THE ROOM AT THAT TIME. HE SPEAKS SOME WORDS THAT ARE EASILY RECOGNIZABLE BUT OTHERWISE IS MOANING & CRYING OUT W/ ADLs. LS ARE COARSE ON R SIDE, DIM IN BASES. PT ON RA W/ O2 SATS > 92%. MONITOR SHOWS SR W/ OCCASIONAL PVCs, HR 80s. LEVOPHED DRIP INFUSING FOR MANAGEMENT OF PERSISTENT HYPOTENSION, SEE FLOWSHEET FOR TITRATION. BT HYPOACTIVE, PT REMAINS NPO FOR HIGH ASPIRATION RISK. LANE PATENT/ DRAINING DARK YELLOW URINE. SKIN CONDITION OVERALL CDI, Q2H REPOSITIONING TO MAINTAIN SKIN INTEGRITY & PREVENT WORSENING OF HEALING PRESSURE ULCER TO R BUTTOCKS/ COCCYX. FAMILY REMAINS AT BEDSIDE & IS SUPPORTIVE IN CARE. WILL CONTINUE TO MONITOR & UPDATE NEEDED.
--- NOTE | 2020-06-18 08:45 | NUR ---
DR REYES: PROVIDER AT BEDSIDE TO EVAL PT, NO CHANGES AT THIS TIME. LOVENOX & PLT COUNT IS DISCUSSED. SHE WOULD LIKE THE PT TO RECEIVE THIS AM DOSE OF LOVENOX R/T IMPROVING PLT COUNT. NO OTHER CHANGES AT THIS TIME. FAMILY PREFERENCE R/T LOVENOX ADMIN HAS BEEN DISCUSSED & THEY ARE OKAY W/ LOVENOX ADMIN FOR THIS PT THEY DO NOT FEEL IT WILL BE "TOO INVASIVE."
[2020-06-18 11:46] LABS: Vancomycin, Trough 18.7 ug/mL (5.0-10.0)
--- NOTE | 2020-06-18 15:32 | NUR ---
Pt. is sleeping. visited with the family and prayed for pt.
--- NOTE | 2020-06-18 17:31 | NUR ---
DR REYES: PROVIDER CONTACTED BY THIS RN REGARDING PT's LOW URINE OUTPUT FOR THIS SHIFT OF 250 ML. URINE IS DARK YELLOW IN COLOR. PT's MAINTAINENCE IVF OF NS @ 125 ML/HR HAVE CONTINUED ORDERED THIS SHIFT. PROVIDER NOTIFIED THAT PT's LS REMAIN COARSE ON R SIDE & THAT NO EDEMA IS NOTED. SHE WOULD LIKE TO BOLUS THE PT W/ 1L NS & THEN REASSESS URINE OUTPUT FOR IMPROVEMENT. IF THERE IS NO IMPROVEMENT, LASIX MAY BE TRIED NEXT. ORDERS PLACED FOR BOLUS.
--- NOTE | 2020-06-18 17:37 | NUR ---
SHIFT SUMMARY: NO ACUTE CHANGES THIS SHIFT. PT HAS BEEN SLEEPING FOR MOST OF THIS SHIFT BUT CONTINUES TO AWAKEN FOR BRIEF PERIODS OF TIME, LOOKING AROUND & SAYING SOME WORDS/ PHRASES. LS ARE COARSE ON R SIDE, PT ON 4L HI-FLOW NC W/ O2 SATS > 92%. MONITOR SHOWS SR W/ HR 70-80s, LEVOPHED DRIP FOR CONTINUED HYPOTENSION TITRATED DOWN TOLERATED - SEE FLOWSHEET. PT NPO FOR ASPIRATION RISK, MOIST MOUTH SWABS PROVIDED PRN COMFORT/ ORAL CARE. TEMP LANE PATENT/ DRAINING DARK YELLOW URINE, SEE PRIOR NN FOR UPDATE REGARDING POOR URINE OUTPUT THIS SHIFT. SKIN CONDITION OVERALL CDI, Q2H REPOSITIONING TO MAINTAIN SKIN INTEGRITY. WILL CONTINUE TO MONITOR & REPORT OFF TO ONCOMING RN.
--- NOTE | 2020-06-18 19:30 | NUR ---
PATIENT SLEEPING QUIETLY WITH FAMILY AT BEDSIDE. AWAKENS TO SLIGHT STIMULI, FALLING BACK TO SLEEP WHEN UNDISTURBED. HX DOWNS SYNDROME AND DEMENTIA, BASELINE EASILY AGITATED. LEVOPHED 2 MCG CONTINUES FOR HYPOTENSION. BIOX 93-95% ON 4L/NC MOIST COUGH CONTINUES, SWALLOWING SPUTUM.
[2020-06-19 03:54] LABS: Hematocrit 32.1 % (37.0-53.0); Hemoglobin 10.5 g/dL (13.5-17.5); Mean Corpuscular HGB 33.8 pg (26.0-34.0); Mean Corpuscular HGB Conc 32.7 g/dL (31.5-36.5); Mean Corpuscular Volume 103 fL (80-100); Mean Platelet Volume 10.5 fL (9.1-12.4); Platelet Count 93 K/mm3 (150-400); RDW Coefficient Variation 16.5 % (11.7-14.2); RDW Standard Deviation 62.7 fL (35.1-46.3); Red Blood Cell Count 3.11 M/mm3 (4.30-5.90)
[2020-06-19 04:16] LABS: Albumin, Blood 1.2 g/dL (3.4-5.0); Anion Gap 4 mmol/L (6-16); Blood Urea Nitrogen 25 mg/dL (8-24); Bun/Creatinine Ratio 26.1 (12.0-20.0); CO2, Blood 24 mmol/L (21-32); Calcium, Blood 7.4 mg/dL (8.5-10.1); Chloride, Blood 120 mmol/L (98-108); Creatinine, Blood 0.96 mg/dL (0.60-1.20); Glomerular Filtration Rate >60 (60-); Glucose, Blood 58 mg/dL (70-99); Phosphorus, Blood 2.6 mg/dL (2.5-4.9); Potassium, Blood 3.7 mmol/L (3.5-5.5); Sodium, Blood 148 mmol/L (136-145)
--- NOTE | 2020-06-19 06:48 | NUR ---
SUMMARY PATIENT SLEEPING OFF AND ON T/O NIGHT, AWAKENS TO SLIGHT STIMULI. HX DOWNS SYNDROME AND DEMENTIA, EASILY AGITATED AT BASELINE. FAMILY AT BEDSIDE PROVIDING GOOD EMOTIONAL SUPPORT. GLUCOSE LOW THIS MORNING FLUIDS CHANGED TO D5 1/2NS @75 CC/HR AND 1 AMP D50 GIVEN GLUCOSE NOW 90. LEVOPHED TITRATED OFF DURING THE NIGHT. LEVOPHED REMAINS OFF AT THIS TIME MAINTAINING MAP >60. CONTINUES TO HAVE POOR URINE OUTPUT.
--- NOTE | 2020-06-19 09:00 | NUR ---
ASSUMED CARE: REPORT RECIEVED FROM KHOI Villaseñor RN. ASSUMED CARE OF THIS PT AT APPROX 0700. ON ASSESSMENT, THE PT IS RESTING QUIETLY. HE IS AWAKE AT TIMES OF CARE & YELLS OUT "MOM" AT THESE TIME & IS VISIBLY AGITATED. IT TAKE NUMEROUS STAFF MEMBERS TO COMPLETE CARE SAFELY & IT REMAINS DIFFICULT TO COMPLETE ADLs ADEQUATELY. FAMILY IS AT BEDSIDE & SUPPORTIVE IN CARE. LS ARE COARSE T/O, PT ON 4L NC W/ O2 SATS > 92% ON AVG, OCCASIONAL DESATS TO 88% W/ COUGHING. MONITOR SHOWS SR W/ HR 60-80s, BP STABLE & LEVOPHED DRIP OFF SINCE APPROX 0000 PER REPORT. PT REMAINS NPO FOR HIGH ASPIRATION RISK, SPEECH THERAPY EVAL ORDERS PLACED BY DR REYES. INCONTINENT VOID OF UNFORMED BROWN STL THIS AM, ATTENDS IN PLACE. TEMP LANE PATENT/ DRAINING DARK YELLOW URINE. SKIN CONDITION OVERALL CDI. HEALING WOUND TO R BUTTOCKS REDRESSED W/ SMALL MEPILEX CLOVER DRESSING. Q2H REPOSITIONING TO MAINTAIN SKIN INTEGRITY. WILL CONTINUE TO MONITOR & UPDATE NEEDED.
--- NOTE | 2020-06-19 11:56 | NUR ---
review with family levels of care. Brief discussion of comfort care and hospice and giving him some time to see if we can offer any more care.
--- NOTE | 2020-06-19 16:10 | NUR ---
Review of pt porgnosis with family they spoke with physician and speech therapist goal is comfort so transition to comfort care. pt has some weaker cough and grunting. will evaluate for fluid overload. stopped fluids per orders. will dc antibiotics after last dose today. Will give stingie dose of roxinol to support more comfort when he coughs and monitor for somulence. Suggest rectal tylenol for his stiffness. comfort cart ordered family has own cell phone guest laundry attendant.
--- NOTE | 2020-06-19 18:05 | NUR ---
SHIFT SUMMARY / TRANSFER TO MED FLOOR: NO ACUTE CHANGES SINCE PRIOR UPDATES. PT NOW COMFORT CARE STATUS SINCE APPROX 1545. HE HAS CONTINUED TO REST QUIETLY W/ FAMILY AT BEDSIDE. ROXANOL x1 PER EMAR FOR AIR HUNGER & WHEEZING NOTED. THE PT HAS RESPONDED WELL TO THIS & RESPIRATIONS ARE NOW LESS LABORED. REPORT HAS BEEN GIVEN TO LIZ WARD TO ASSUME CARE OF THIS PT. HE HAS BEEN TX TO RM 364 AT APPROX 1805. PT's SISTERS ARE BOTH AT BEDSIDE DURING THIS TIME. CHART, MEDS & ALL BELONGINGS HAVE BEEN TAKEN OUT AT THIS TIME. PT TX VIA BED BY GRZEGORZ PRINGLE.
--- NOTE | 2020-06-19 18:26 | NUR ---
Spiritual care note: I met with Fitz's sister, Ibis, at bedside. She responded well to counsellors and emotional affirmation. Provided some education as she had some pentecostal questions about stopping aggressive treatment for her brother. We prayed together at conclusion of visit and she appeared calm/grateful. I will continue to follow as schedule permits.
--- NOTE | 2020-06-20 04:40 | NUR ---
SHIFT SUMMARY ASSUMED CARE OF PT AT 1900. PT HAS BEEN NON VERBAL T/O THE NIGHT. PT AWOKE ONCE WHEN BEING CHANGED AND TURNED. PT RESPIRATIONS ARE EVEN AND UNLABORED. PT MEDICATED TWICE FOR AIR HUNGER. PT FAMILY REQUESTED THAT FLUIDS BE DISCONTINUED AND ABX STOPPED DUE TO PT SWELLING. FAMILY OK WITH PT RECEIVING IV KEPPRA TO PREVENT ANY SEIZURES. PT CATHETER IS DRAINING CLEAR YELLOW URINE. PT HAS MEPILEX OVER WOUND ON R BUTTOCK. PT BROTHER STAYED IN ROOM T/O THE NIGHT. CALL LIGHT IN REACH, BED IN LOWEST POSITION.
--- NOTE | 2020-06-20 07:48 | NUR ---
PATIENT'S BROTHER IS AT THE BEDSIDE. PATIENT MEDICATED FOR PAIN AT THE START OF THIS SHIFT.
--- NOTE | 2020-06-20 10:24 | NUR ---
[facility] CARE COMFORT CARE VISIT - Pt new to me today. EMR reviewed and case conferenced with pt's RN prior to visit. Brother and sister at bedside. Pt had just been repositioned by CNAs. He is lying supine with hob elevated. Noisy upper airway secretions noted. Giraldo cath drainage bag with yellow urine noted. Pt appears comfortable outside of increased resp rate. Skin warm, sl damp. No nonverbal indicators of pain or distress, agitation noted. Pt did pump feet against my hands when assessing LE and pressure points. He was unresponsive to voice and touch otherwise. Family supported and given information on medications being used and available to treat Fitz's s/s and to maintain comfort. Educated family on normal s/s that they may note in dying process. Discussed briefly plans for care if pt stable and d/c planning. I believe pt should remain as he appears within days of end of life. Case conferenced with RN after visit regarding use of scopolomine patch. Atropine had been given earlier this am. Roxanol to be cont for increased resp effort/rate and discomfort. Family doing well with supporting eachother. The expressed appreciation for the visit and the care Fitz has received by everyone during his hospital stay.
--- NOTE | 2020-06-20 11:36 | NUR ---
PATIENT'S FAMILY IS AT THE BEDSIDE.
--- NOTE | 2020-06-20 17:44 | NUR ---
FAMILY IS AT THE BEDSIDE. NO COMPLAINTS OF PAIN
--- NOTE | 2020-06-20 18:00 | NUR ---
PATIENT HAS SLEPT THROUGHTOUT THE SHIFT. HE WILL OPEN HIS EYES SLIGHTLY TO SOUND. FAMILY HAS BEEN AT THE BEDSIDE ALL THIS SHIFT. LANE IS IN PLACE AND PATENT. PATIENT TREATED FOR PAIN, DYSPNEA AND SECRETIONS. WILL CONTINUE TO MONITOR.
--- NOTE | 2020-06-21 02:25 | NUR ---
SHIFT SUMMARY ASSUMED CARE OF PT AT 1900. FAMILY IS PRESENT IN ROOM. PT BREATHING IS EVEN AND UNLABORED. PT SKIN IS MORE PALE THIS SHIFT. PT EYES FLUTTER OCCASIONALLY. AT AROUND 0000 PT EYES WERE OPENING MORE FRQUENTLY, PT BREATHING BECAME UNLABORED AND PT SHIFTED HIS HEAD. MEDICATED PER EMAR. AT 0100, PT WAS MORE CALM BUT HJIS BREATHING WAS GASPING. MEDICATED AGAIN. WHEN ASESSED AT 0200, PT BREATHING WAS VERY APENIC. FAMILY PRESENT. WHEN GETTING MEDICATION, UPON RETUN, PT HAD PASSED. VERIFIED WITH SAMINA RAYMOND RN. TOD @ 0208. FAMILY DENIED MEEDED PASTORAL CARE, DID NOT WANT TO DONATE PT BODY AND SAID TO TAKE PATIENT TO [facility].
--- NOTE | 2020-06-21 03:44 | NUR ---
SANTI PT DISCHARGED WITH [facility] AT 0342. AIR BRAKE MECHANIC WAS CALLED BETH CASTILLO, AND RECEIVED FACESHEET.
== END 2020-06-21 02:08 | DRG 871 ==
LOC: ER 19:05 → ICUE 23:01 → ICUW 23:01 → ICUE 06-17 00:17 → MEDS 06-19 18:04
PROVIDERS: Emergency Medicine; Internal Medicine; ADMIT Internal Medicine
DX: A41.9 Sepsis, unspecified organism (principal); R65.21 Severe sepsis with septic shock; G92 Toxic encephalopathy; J69.0 Pneumonitis due to inhalation of food and vomit; J96.01 Acute respiratory failure with hypoxia; E87.2 Acidosis; F02.81 Dementia in other diseases classified elsewhere, unspecified severity, with behavioral disturbance; Z66 Do not resuscitate; Z20.822 Contact with and (suspected) exposure to COVID-19; D69.6 Thrombocytopenia, unspecified; E03.9 Hypothyroidism, unspecified; G30.9 Alzheimer's disease, unspecified; E16.2 Hypoglycemia, unspecified; G40.909 Epilepsy, unspecified, not intractable, without status epilepticus; K21.9 Gastro-esophageal reflux disease without esophagitis; N40.0 Benign prostatic hyperplasia without lower urinary tract symptoms; Q90.9 Down syndrome, unspecified; R13.10 Dysphagia, unspecified; F41.9 Anxiety disorder, unspecified
CPT/HCPCS: 0241U; 36415; 51702; 71045; 80053; 80069; 80202; 81001; 82947; 83605; 83690; 83880; 85025; 85027; 87040; 87086; 92526; 92610; 96361-59; 96365-59; 96375-59; 99285-25; A9270; J1630; J1650; J1953; J2060; J2543; J3370; J7030; J7040; J7042; J7050; J7060; P9046